=== PATIENT | male | born 1980 | race Caucasian/White ===

== ENCOUNTER 2018-05-10 | Emergency (ER) | payer BC | END 2018-05-10 19:23 | disposition home or self-care (01) ==

== ENCOUNTER → 2018-08-17 | Outpatient (CLI) | payer BC | LOC: FIMAGING 18:16 | PROVIDERS: ATTEND Physician Assistant Medical | DX: R93.0 Abnormal findings on diagnostic imaging of skull and head, not elsewhere classified (principal); R90.82 White matter disease, unspecified ==

== ENCOUNTER → 2018-09-01 | Outpatient (CLI) | payer BC ==
[~2018-09-01] MED LIST: LIDO/EPI 1% **for epidural** 30 ML SDV ONE
[2018-09-01 09:26] LABS: INR 1.02 (0.83-1.16); PROTIME(PATIENT) 13.6 SEC (12.0-15.0)
== END ==
LOC: FIMAGING 08:15
PROVIDERS: ATTEND Physician Assistant Medical
PROC: 009U3ZX Drainage of Spinal Canal, Percutaneous Approach, Diagnostic (ICD-10-PCS; principal; 2018-09-01)
DX: R93.0 Abnormal findings on diagnostic imaging of skull and head, not elsewhere classified (principal); R90.82 White matter disease, unspecified
CPT/HCPCS: 82784-90; 83916-90

== ENCOUNTER 2018-09-05 14:00 | Outpatient (CLI) | payer BC ==
[2018-09-05] MEDS ORDERED: LIDOCAINE 1% 300 MG/30 ML SDV ONE (14:05)
[2018-09-05] MEDS ORDERED: IOPAMIDOL (ISOVUE-M 300) 15 ML VIAL ONE (14:05)
== END 2018-09-05 15:22 | disposition home or self-care (01) ==
LOC: FIMAGING 14:00
PROVIDERS: ATTEND Radiology Diagnostic Radiology
PROC: 3E0S3GC Introduction of Other Therapeutic Substance into Epidural Space, Percutaneous Approach (ICD-10-PCS; principal; 2018-09-05)
DX: G97.1 Other reaction to spinal and lumbar puncture (principal)
CPT/HCPCS: Q9967